=== PATIENT | male | born 1985 | race Caucasian/White ===

== ENCOUNTER 2018-03-16 15:35 | Emergency (ER) | payer MEDICAID ==
[2018-03-16] MEDS: TETRACAINE 0.5% 4 ML OPH LEFT EYE (16:20)
[2018-03-16] MEDS: FLUORESCEIN STRIP LEFT EYE (16:20)
== END 2018-03-16 16:55 | disposition home or self-care (01) ==
LOC: FTE 15:35
DX: S05.92XA Unspecified injury of left eye and orbit, initial encounter (principal); X58.XXXA Exposure to other specified factors, initial encounter; Y92.9 Unspecified place or not applicable
CPT/HCPCS: 99283; Z7502

== ENCOUNTER 2018-09-19 17:18 | Emergency (ER) | payer MEDICAID ==
[2018-09-19] MEDS: ACETAMINOPHEN 325 MG TAB PO (19:11)
== END 2018-09-19 21:22 | disposition home or self-care (01) ==
LOC: FTE 17:18
DX: M79.645 Pain in left finger(s) (principal)
CPT/HCPCS: 29130; 73140; 99283-25